=== PATIENT | male | born 2000 | race Caucasian/White ===

== ENCOUNTER 2021-06-26 19:17 | Emergency (ER) | payer SELFPAY ==
[~2021-06-26] VITALS: Ht 177.8 cm; Wt 140.9 kg
[2021-06-26 20:06] LABS: BASO # 0.01 K/mm3 (0.02-0.10); EOS # 0.03 K/mm3 (0.04-0.40); EOS % 0.3 % (0.0-4.0); HEMATOCRIT 48.4 % (36.0-47.0); MEAN CELL VOLUME 83 fl (78-95); MEAN CORPUSCULAR HEMOGLOBIN 27 pg (26-32); MEAN CORPUSCULAR HGB CONC 33 g/dL (33-37); MEAN PLATELET VOLUME 8.6 fl (7.4-10.4); MONO # 0.98 K/mm3 (0.20-0.80); NEU # 8.84 K/mm3 (1.40-6.50); PLATELET COUNT 303 K/mm3 (130-400); RED BLOOD COUNT 5.84 M/mm3 (4.20-5.60); WHITE BLOOD COUNT 10.5 K/mm3 (4.8-10.8)
[2021-06-26 20:38] LABS: ALBUMIN 4.7 g/dL (3.5-5.0); POTASSIUM 4.2 mmol/L (3.5-5.1)
[2021-06-26 20:39] LABS: CALCIUM 9.2 mg/dL (8.3-10.5)
[2021-06-26 20:40] LABS: TOTAL PROTEIN 7.5 g/dL (6.4-8.3)
[2021-06-26 20:42] LABS: TOTAL BILIRUBIN 0.9 mg/dL (0.2-1.2)
[2021-06-26] MEDS ORDERED: ZOFRAN ODT4 MG PO (21:41)
[2021-06-26 21:53] VITALS: BP 137/79
== END 2021-06-26 21:53 | disposition home or self-care (01) ==
LOC: ED 19:17
PROVIDERS: Family Medicine
DX: A08.4 Viral intestinal infection, unspecified (principal); Z20.822 Contact with and (suspected) exposure to COVID-19
CPT/HCPCS: J1885; J3490; J7030

== ENCOUNTER → 2024-01-02 | Outpatient (CLI) | payer BC ==
[~2024-01-02] MED LIST: ZOFRAN ODT4 MG PO
[2024-01-02 15:57] LABS: BASO # 0.02 K/mm3 (0.02-0.10); EOS # 0.15 K/mm3 (0.04-0.40); EOS % 1.8 % (0.0-4.0); HEMATOCRIT 44.9 % (42.0-52.0); LYMPH# 1.82 K/mm3 (1.50-4.00); MEAN CELL VOLUME 83 fl (78-100); MEAN CORPUSCULAR HEMOGLOBIN 28 pg (27-31); MEAN CORPUSCULAR HGB CONC 33 g/dL (33-37); MEAN PLATELET VOLUME 8.6 fl (7.4-10.4); MONO # 0.68 K/mm3 (0.20-0.80); NEU # 5.53 K/mm3 (1.40-6.50); PLATELET COUNT 328 K/mm3 (130-400); RED BLOOD COUNT 5.43 M/mm3 (4.20-5.60); RED CELL DISTRIBUTION WIDTH 13.9 % (11.5-14.5); WHITE BLOOD COUNT 8.2 K/mm3 (4.8-10.8)
[2024-01-02 16:06] LABS: ALBUMIN 4.4 g/dL (3.5-5.0)
[2024-01-02 16:09] LABS: TOTAL PROTEIN 7.7 g/dL (6.4-8.3)
[2024-01-02 16:11] LABS: TOTAL BILIRUBIN 0.3 mg/dL (0.2-1.2)
== END ==
LOC: LAB 15:32
PROVIDERS: Family Medicine
DX: I10 Essential (primary) hypertension (principal); E78.5 Hyperlipidemia, unspecified; E03.9 Hypothyroidism, unspecified; R73.9 Hyperglycemia, unspecified

== ENCOUNTER → 2024-01-05 | Outpatient (CLI) | payer BC | LOC: RAD 10:34 | DX: R22.42 Localized swelling, mass and lump, left lower limb (principal) ==